=== PATIENT | female | born 1950 | race Hispanic/Latino ===

== ENCOUNTER 2020-09-04 14:03 | Emergency (ER) | payer OTHER ==
--- OUTSIDE RECORDS SUMMARY | 2020-09-04 14:05 | XMS REPORT ---
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
--- OUTSIDE RECORDS SUMMARY | 2020-09-04 14:05 | XMS REPORT ---
:1950 Author Organization [facility] Address [address] [facility] [place] [address] Care Team Providers Name Role Phone Pamela Unavailable [phone] PROBLEMS Type Condition ICD9-CM [id number] Onset Condition SNOMED Code Notes Code Code Dates Status Problem Vaginal N89.8 Active 31830522 itching Problem Prosthetic eye Z97.0 Active 264798741 Located on globe right. Problem Itching of ear L29.9 Active 377815126 Problem Hematuria, R31.9 Active 63101402 unspecified type Problem Bilateral back M54.9 Active 092521948 Located pain, bilaterally unspecified at back location, mid-level . unspecified chronicity Problem Abnormal R92.8 Active 095504431 mammogram of left breast Problem Elevated BP R03.0 Active 927746222 without diagnosis of hypertension Problem Abnormal R92.8 Active 181700955 mammogram Problem Urinary R32 Active 486784991 incontinence, unspecified type Problem Essential I10 Active 26603561 hypertension Problem Hyperglycemia R73.9 Active 37020418 Problem Counseling and Z71.89 Active 032145796 coordination of care Problem Mass of left N63.20 Active 96354680771369727 N oted on breast mammogram. ALLERGIES No Known Allergies ENCOUNTERS from 1950 to 2020-09-03 Encounter Location Date Provider [facility] [address] [facility] [place] Aug, Melvi Pamela Salcido bnormal mammogram Family [facility] [address], [place] [address] R92.8 and Abno rmal ultrasound of breast R92.8 IMMUNIZATIONS No Information SOCIAL HISTORY Tobacco Use: Social History Observation Description Date Details (start date - stop date) Never Smoker Sex Assigned At : Social History Observation Description Sex Assigned At Unknown Alcohol Screen Question Answer Notes Did you have a drink containing alcohol in the past year? No Points 0 Interpretation Negative Tobacco Use/Smoking Question Answer Notes Are you a never smoker REASON FOR REFERRAL No Information VITAL SIGNS No information MEDICATIONS Medication SIG (Take, Route, Frequency, Start Date End Date Status Duration) Enalapril Maleate 5 MG 1-2 tablets Orally Once a day for Active high blood pressure for 90 days PROCEDURES No Information RESULTS No Results REASON FOR VISIT referral to general surgery MEDICAL (GENERAL) HISTORY Type Description Date Medical History Prosthetic eye globe Medical History Urinary incontinence, unspecified type Medical History Elevated BP without diagnosis of hyperte nsion Medical History Bilateral back pain, unspecified back lo cation, unspecified chronicity Medical History Hyperglycemia Surgical History Hysterectomy 1986 Surgical History Glaucoma 1989 Surgical History Gallbladder Removal 1999 Surgical History Eye Removal 2011 Goals Section No Information Health Concerns No Information MEDICAL EQUIPMENT No Information MENTAL STATUS No Information FUNCTIONAL STATUS No Information ASSESSMENTS Encounter Date Diagnosis Notes Aug, Abnormal mammogram of left breast (ICD-1 0 - R92.8) Aug, Abnormal ultrasound of breast (ICD-10 - R92.8) PLAN OF TREATMENT Medication Medication Name Sig Start Date Stop Date Enalapril Maleate 5 MG 1-2 tablets Orally Once a day for high blood pressure for 90 days Next Appt Details Provider Name:Melviliv Santiago, 11-0 5 11:00:00 AM, [address], [address], [place], [address], Provider Name:Melvi Santiago 2020-09-1 2 09:40:00 AM, [address], [address], [place], [address], Insurance Providers Payer Name Payer Address Payer Insured Patient Coverage Cover age Phone Name Relationship to Start Date End Date Insured MEDICARE Attn Part B [id number] Blaze Huerta [facility] Claims [phone] [facility] [address] [employer] [address] [phone] Blaze Huerta [facility] [address] a A Medicare [id number] Replace
--- OUTSIDE RECORDS SUMMARY | 2020-09-04 14:05 | XMS REPORT ---
:1950 Author Organization eClinicalWorks Care Team Providers Name Role Phone Melvi Santiago Provider Role Unavailable Allergies, Adverse Reactions, Alerts Substance Reaction Event Type N.K.D.A. 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 Problem Bilateral back pain, unspecified M54.9 Active back location, unspecified chronicity Problem Essential hypertension I10 Activ e Problem Hyperglycemia R73.9 Active Problem Itching of ear L29.9 Active Problem Elevated BP without diagnosis of R03.0 Active hypertension Problem Hematuria, unspecified type R31.9 Active Problem Vaginal itching N89.8 Active Assessment Medicare annual wellness visit, Z00.00 Active subsequent Assessment Skin lesions L98.9 Active Assessment Asymptomatic menopausal state Z78.0 Active Assessment Rash and nonspecific skin eruption R21 Active Assessment Encounter for screening mammogram Z12.31 Active for malignant neoplasm of breast Assessment Itching L29.9 Active Medications Medication Code Code Instructions Start End Status Dosage System Date Date Enalapril [facility] 06136412991 5 MG Orally Active 1 tabl et Maleate Once a day for high blood pressure Ketoconazole ND 09549228495 2 % Externally June 01Jul Active 1 application Once a day 2019 12, to affected 2020 areas Results No Known Results Summary Purpose eClinicalWorks Submission
--- OUTSIDE RECORDS SUMMARY | 2020-09-04 14:05 | XMS REPORT | Continuity of Care Document ---
:1950 Author Organization [facility] Address [address] [place] [address] Care Team Providers Name Role Phone Unavailable Unavailable Unavailable Problems This patient has no known problems. Allergies, Adverse Reactions, Alerts This patient has no known allergies or adverse reactions. Medications Ordered Filled Start Stop Current Ordering Indication Dosage Frequency Signature Comments Components Source Medication Medication Date Date Medication? Clinician (SIG) Name Name Enalapril Enalapril Yes Melvi 1-[address] Maleate Maleate 2-05 Millender tablets L ukes - 00:[facility]: [facility] Procedures This patient has no known procedures. Encounters Start End Encounter Admission Attending Care Care Encounter Source Date/Time Date/Time Type Type Clinicians Facility Department ID 2020-09-03 2020-09-03 Outpatient [facility] [id number] [facility] 2020-08-16 2020-08-16 Outpatient [facility] [id number] [facility] 2020-08-05 2020-08-05 [facility] [id number] [facility] 11:00[facility]00 11:00:00 [facility] Medicine Outpati ent Clinics 2020-06-01 2020-06-01 [facility] [id number] 13:20:00 13:20:00 [facility] Medicine l Medicine Outpati ent Clinics 2020-05-20 2020-05-20 [facility] [id number] 11:50:00 11:50:00 [facility] Medicine Outpati ent Clinics 2020-05-07 2020-05-07 [facility] [id number] 08:04:00 08:04:00 [facility] Medicine Outpati ent Clinics 2020-04-19 2020-04-19 [facility] [id number] [facility] 23:41:00 23:41:00 [facility] Medicine Outpati ent Clinics 2020-04-16 2020-04-16 [facility] [id number] 15[facility]00:00 15:00:00 [facility] Medicine Outpati ent Clinics 2019-12-24 2019-12-24 [facility] [id number] 22:31:00 22:31:00 [facility] Medicine Outpati ent Clinics 2019-12-24 2019-12-24 [facility] [id number] [facility] 09[facility]30:00 09:30:00 [facility] Medicine Outpati ent Clinics 2019-09-15 2019-09-15 [facility] [id number] [address] 10:00:00 10:00:00 [facility] Medicine Outpati ent Clinics 2019-08-25 2019-08-25 Outpatient brucezzAmy Suresh [id number] [facility] 15:25:[facility] 15:25:00 Abraham Rosario [facility] l Outpati [facility] Clinics 2019-08-20 2019-08-20 [facility] [id number] [address] 22:36:00 22:36:00 [facility] Medicine Outpati [facility] Clinics 2019-08-20 2019-08-20 [facility] [id number] 14:00:00 14:00:00 [facility] Medicine Outpati ent Clinics Results This patient has no known results.
--- OUTSIDE RECORDS SUMMARY | 2020-09-04 14:05 | XMS REPORT ---
:1950 Author Organization [facility] Address [address] [facility], [address] [place] [address] Care Team Providers Name Role Phone Millender Unavailable [phone] PROBLEMS Type Condition ICD9-CM [id number] Onset Condition SNOMED Code Notes Code Code Dates Status Problem Elevated BP R03.0 Active 015636378 without diagnosis of hypertension Problem Itching of ear L29.9 Active 281805564 Problem Hematuria, R31.9 Active 91371469 unspecified type Problem Prosthetic eye Z97.0 Active 127121639 Located on globe right. Problem Mass of left N63.20 Active 62591212189210590 N oted on breast mammogram. Problem Urinary R32 Active 687286518 incontinence, unspecified type Problem Abnormal R92.8 Active 372615666 mammogram of left breast Problem Vaginal N89.8 Active 15545438 itching Problem Bilateral back M54.9 Active 077580657 Located pain, bilaterally unspecified at back location, mid-level . unspecified chronicity Problem Essential I10 Active 41660924 hypertension Problem Hyperglycemia R73.9 Active 26530099 Problem Counseling and Z71.89 Active 832025544 coordination of care ALLERGIES No Known Allergies ENCOUNTERS from 1950 to 2020-09-01 Encounter Location Date [facility] [address] [facility] [address] Jul, 2020 Melvi [place] [address] IMMUNIZATIONS No Information SOCIAL HISTORY Tobacco Use: [...] Information RESULTS No Results REASON FOR VISIT No Information MEDICAL (GENERAL) HISTORY Type Description Date Medical [...] No Information FUNCTIONAL STATUS No Information ASSESSMENTS No Information PLAN OF TREATMENT Medication Medication Name Sig Start Date Stop Date Enalapril Maleate 5 MG 1-2 tablets Orally Once a day for high blood pressure for 90 days Next Appt Details Provider Name:Melvi Santiago, 2019-11-1 2 09:40:00 AM, [address] [facility], [address], [place], [address], Insurance Providers Payer Name Payer Address Payer Insured Patient Coverage Cover age Phone Name Relationship to Start Date End Date Insured [place] [address] [phone] Blaze Huerta [facility] [address] a A Medicare [id number] Replace MEDICARE Attn Part B [id number] Blaze Huerta [facility] Claims [phone] [facility] [address]
--- OUTSIDE RECORDS SUMMARY | 2020-09-04 14:05 | XMS REPORT ---
:1950 Author Organization eClinicalWorks Care Team Providers Name Role Phone Melvi Santiago Provider Role Unavailable Allergies, Adverse Reactions, Alerts Substance Reaction Event Type N.K.D.A. Info Not Available Non Drug Allergy Problems Problem Type Condition Code Onset Dates Condition Statu s Problem Urinary incontinence, unspecified R32 Active type Problem Itching of ear L29.9 Active Problem Elevated BP without diagnosis of R03.0 Active hypertension Problem Mass of left breast N63.20 Active Problem Counseling and coordination of care Z71.89 Active Problem Abnormal mammogram of left breast R92.8 Active Problem Bilateral back pain, unspecified M54.9 Active back location, unspecified chronicity Problem Hematuria, unspecified type R31.9 Active Problem Hyperglycemia R73.9 Active Problem Essential hypertension I10 Activ e Assessment Counseling and coordination of care Z71.89 Active Assessment Mass of left breast N63.20 Active Assessment Essential hypertension I10 Activ e Problem 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
[2020-09-04 14:44] LABS: Absolute Lymphocytes (CBC) 2.2 K/uL (0.7-4.9); Basophils % 0.7 % (0-1.3); Hematocrit 42.3 % (36.0-45.0); Lymphocytes % 24.3 % (15.3-44.8); MPV 9.2 fL (7.6-11.3); RBC Red Blood Cell Count 5.05 M/uL (3.86-4.86)
[2020-09-04] MEDS ORDERED: MORPHINE 4 MG/ML SYR ONE (14:54)
[2020-09-04] MEDS ORDERED: ONDANSETRON 4 MG/2 ML VIAL ONE (14:54)
[2020-09-04 15:03] LABS: Albumin 4.2 g/dL (3.4-5.0); Bilirubin Direct 0.2 mg/dL (0-0.2); Bilirubin Total 0.8 mg/dL (0.2-1.0); Potassium 3.6 mmol/L (3.5-5.1)
--- NOTE | 2020-09-04 15:38 | RAD REPORT ---
EXAM DESCRIPTION: CT - Abdomen Pelvis W Contrast - 09/04/2020 3:23 pm CLINICAL HISTORY: ABD PAIN COMPARISON: 3D SCR SONJA BILAT W/CAD dated 06/29/2020; Follow Up Breast Axilla Comp dated 08/12/2020 TECHNIQUE: Biphasic, helical CT imaging of the abdomen and pelvis was performed following 100 ml non -ionic IV contrast. No oral contrast. All CT scans are performed using dose optimization technique as appropriate and may include automated exposure control or mA/KV adjustment according to patient size. FINDINGS: No suspicious findings in the lung bases. No pericardial effusion. Liver shows a mild diffuse fatty infiltration pattern. There are several round low-density masses in the left lobe and anterior right lobe. The show fluid attenuation and are most likely incidental cyst s. No enhancing or solid mass lesion of the liver confirmed. No portal vein abnormality identified. G allbladder is absent. Biliary tree within normal limits for a post cholecystectomy patient. Pancreas and spleen show no suspicious findings. Symmetric renal function is seen with no hydronephrosis or suspicious renal mass. No pyelonephritis o r acute parenchymal process. No bladder abnormalities. No adrenal abnormalities. Uterus is absent. Atrophic ovaries show no suspicious findings. No gastric wall thickening or mass. No small bowel abnormality. The appendix is normal. No acute colo n finding identifiable. Patient has moderate severity sigmoid diverticulosis without acute diverticul itis. Minimal stranding is seen near the vaginal cuff not suspected to be acute. Patient detailed mi n in the right upper quadrant. No free air, free fluid or pneumatosis. No peritoneal or retroperitoneal mass or bulky lymphadenopat hy. Disc and bone degenerative changes are present. No acute or pathologic bone process seen. In the lateral lower quadrant of the left breast a 12 millimeter irregular mass density is present. M ammography and sonography from June and July of this year showed findings suspicious for left breast malignancy. It is unknown if the patient is aware of this finding or if recommended ultrasound core biopsy has been scheduled. IMPRESSION: Gallbladder is absent. Biliary tree is prominent but not outside of normal range for a p ost cholecystectomy patient. Duct stones can be occult. Correlation is needed with any biliary obstru ctive symptoms. Mild diffuse fatty infiltration of the liver. Multiple small liver cysts are identified. Prominent sigmoid diverticulosis without diverticulitis or acute GI finding. A left breast 12 millimeter mass is identified, shown on recent mammography and sonography to be a pr obable malignancy. It is unknown if the patient is aware of this finding or if the recommended ultras ound guided core biopsy has been scheduled.
[2020-09-04 15:56] LABS: Urine Blood 1+ (NEG); Urine Glucose NEGATIVE (NEG); Urine Protein NEGATIVE (NEG); Urine pH 5.5 (5.0-7.0)
--- NOTE | 2020-09-04 16:04 | EDPHYS ---
Physician Documentation [facility] Name: Juanita Augustine Age: 69 yrs Sex: Female : 1950 Arrival Date: 09/04/2020 Time: 14:05 Bed 6 Private MD: Melvi Santiago ED Physician Ad Mackay HPI: 09/04 14:56 This 69 yrs old Female presents to ER via Ambulatory with complaints of pm1 Abdominal Pain. 14:56 The patient presents with abdominal pain in the epigastric area. Onset: The pm1 symptoms/episode began/occurred 3 day(s) ago. The symptoms do not radiate. Associated signs and symptoms: Pertinent positives: loose stools, Pertinent negatives: nausea, vomiting, and diarrhea, blood in stools, chest pain, dysuria, fever, shortness of breath. The symptoms are described as achy. Modifying factors: The symptoms are alleviated by nothing, the symptoms are aggravated by nothing. Severity of pain: in the emergency department the pain is unchanged. The patient has been recently seen by a physician: with different complaint(s), 3 weeks ago was seen for right knee pain. Historical: - Allergies: 14:32 No Known Allergies; iw - Home Meds: 14:32 enalapril maleate 5 mg Oral tab 1 tab once daily [Active]; iw - PMHx: 14:32 Hypertension; iw - PSHx: 14:32 Cholecystectomy; Hysterectomy; right eye; iw 14:30 L wrist; aa5 ROS: 14:58 Constitutional: Negative for fever, chills, and weight loss. pm1 14:58 Back: Negative for injury and pain. 14:58 Cardiovascular: Negative for chest pain, palpitations, and edema, Respiratory: Negative for shortness of breath, cough, wheezing, and pleuritic chest pain, Skin: Negative for injury, rash, and discoloration, Neuro: Negative for headache, weakness, numbness, tingling, and seizure. 14:58 Abdomen/GI: Positive for abdominal pain, of the epigastric area, Negative for nausea, vomiting, and diarrhea. 14:58 MS/extremity: Positive for pain, of the right knee, Negative for decreased range of motion, deformity. Exam: 14:58 Constitutional: This is a well developed, well nourished patient who is awake, alert, pm1 and in no acute distress. Head/Face: Normocephalic, atraumatic. 14:58 Back: No spinal tenderness. No costovertebral tenderness. Full range of motion. Skin: Warm, dry with normal turgor. Normal color with no rashes, no lesions, and no evidence of cellulitis. MS/ Extremity: Pulses equal, no cyanosis. Neurovascular intact. Full, normal range of motion. 14:58 Cardiovascular: Exam negative for acute changes, Rate: normal, Rhythm: regular, Pulses: no pulse deficits are appreciated. 14:58 Respiratory: Exam negative for acute changes, respiratory distress, shortness of breath. 14:58 Abdomen/GI: Exam negative for acute changes, Inspection: abdomen appears normal, Palpation: abdomen is soft and non-tender, in all quadrants. 14:58 Neuro: Exam negative for acute changes, Orientation: is normal, Mentation: is normal, Motor: is normal, moves all fours. Vital Signs: 14:23 BP 150 / 100; Pulse 111; Resp 16 S; Temp 97.8; Pulse Ox 98% on R/A; iw 14:53 BP 147 / 95; Pulse 74; Resp 16 S; Pulse Ox 97% on R/A; aa5 15:35 BP 137 / 71; Pulse 83; Resp 16 S; Pulse Ox 97% on R/A; aa5 MDM: 14:16 Patient medically screened. pm1 14:53 Data reviewed: vital signs. Data interpreted: Pulse oximetry: on room air is 97 %. pm1 Interpretation: normal. 16:02 Counseling: I had a detailed discussion with the patient and/or guardian regarding: the pm1 historical points, exam findings, and any diagnostic results supporting the discharge/admit diagnosis, lab results, radiology results, the need for outpatient follow up, oncology and GI, to return to the emergency department if symptoms worsen or persist or if there are any questions or concerns that arise at home. 16:19 ED course: Patient is aware of breast mass. She had abnormal U/S and is seeing her PCP pm1 on Sunday to discuss biopsy plans. 09/04 14:20 Order name: Basic Metabolic Panel; Complete Time: 15:04 pm1 09/04 14:20 Order name: CBC with Diff; Complete Time: 14:56 pm1 09/04 14:20 Order name: Hepatic Function; Complete Time: 15:04 pm1 09/04 14:20 Order name: Lipase; Complete Time: 15:04 pm1 09/04 14:20 Order name: CT Abd/Pelvis - IV Contrast Only; Complete Time: 15:58 pm1 09/04 14:37 Order name: Urine Dipstick--Ancillary (enter results); Complete Time: 15:58 eb 09/04 14:20 Order name: IV Saline Lock; Complete Time: 14:38 pm1 09/04 14:20 Order name: Labs collected and sent; Complete Time: 14:39 pm1 09/04 14:20 Order name: Urine Dipstick-Ancillary (obtain specimen); Complete Time: 14:37 pm1 Administered Medications: 14:45 Drug: morphine 4 mg Route: IVP; Site: right antecubital; aa5 14:45 Drug: Zofran (Ondansetron) 4 mg Route: IVP; Site: right antecubital; aa5 Disposition: 16:38 Co-signature as Attending Physician, Ad Mackay MD. rn Disposition: 09/04/20 16:04 Discharged to Home. Impression: Unspecified abdominal pain. - Condition is Stable. - Discharge Instructions: Abdominal Pain, Adult, Breast Biopsy. - Prescriptions for Pepcid 20 mg Oral Tablet - take 1 tablet by ORAL route every 12 hours for 10 days; 20 tablet. Tramadol 50 mg Oral Tablet - take 1 tablet by ORAL route every 8 hours as needed; 12 tablet. - Medication Reconciliation Form, Thank You Letter, Antibiotic Education, Prescription Opioid Use form. - Follow up: Emergency Department; When: As needed; Reason: Worsening of condition. Follow up: Private Physician; When: 2 - 3 days; Reason: Recheck today's complaints, Continuance of care, Re-evaluation by your physician. - Problem is new. - Symptoms have improved. Signatures: Dispatcher [employer] EDMS Sita Matthews RN RN iw Nieto, Roman, MD MD rn Calderon, Audri, RN RN aa5 Dinh Caruso, [employer]DR[employer] INSIDE CHANNEL ACCOUNT MANAGER pm1 Corrections: (The following items were deleted from the chart) 16:38 16:04 09/04/2020 16:04 Discharged to Home. Impression: Unspecified abdominal pain. aa5 Condition is Stable. Forms are Medication Reconciliation Form, Thank You Letter, Antibiotic Education, Prescription Opioid Use. Follow up: Emergency Department; When: As needed; Reason: Worsening of condition. Follow up: Private Physician; When: 2 - 3 days; Reason: Recheck today's complaints, Continuance of care, Re-evaluation by your physician. Problem is new. Symptoms have improved. pm1
--- NOTE | 2020-09-04 16:04 | ER ---
Nurse's Notes [facility] Name: Juanita Augustine Age: 69 yrs Sex: Female : 1950 Arrival Date: 09/04/2020 Time: 14:05 Bed 6 Private MD: Melvi Santiago Diagnosis: Unspecified abdominal pain Presentation: 09/04 14:23 Chief complaint: Patient states: right knee pain X 2 weeks, was taking some medicine at home for the pain and now has RUQ pain X 4 days. Coronavirus screen: At this time, the client does not indicate any symptoms associated with coronavirus-19. Ebola Screen: Patient negative for fever greater than or equal to 101.5 degrees Fahrenheit, and additional compatible Ebola Virus Disease symptoms Patient denies exposure to infectious person. Patient denies travel to an Ebola-affected area in the 21 days before illness onset. No symptoms or risks identified at this time. Initial Sepsis Screen: Does the patient meet any 2 criteria? No. Patient's initial sepsis screen is negative. Does the patient have a suspected source of infection? No. Patient's initial sepsis screen is negative. Risk Assessment: Do you want to hurt yourself or someone else? Patient reports no desire to harm self or others. Onset of symptoms was August 31, 2020. 14:23 Method Of Arrival: Ambulatory 14:23 Acuity: LIBAN 3 iw Historical: - Allergies: 14:32 No Known Allergies; iw - Home Meds: 14:32 enalapril maleate 5 mg Oral tab 1 tab once daily [Active]; iw - PMHx: 14:32 Hypertension; iw - PSHx: 14:32 Cholecystectomy; Hysterectomy; right eye; iw 14:30 L wrist; aa5 Screenin:20 Abuse screen: Denies threats or abuse. Nutritional screening: No deficits noted. aa5 Tuberculosis screening: No symptoms or risk factors identified. Fall Risk None identified. Assessment: 14:20 General: Appears uncomfortable, Behavior is calm, cooperative. Pain: Complains of pain aa5 in right upper quadrant and right knee Pain does not radiate. Pain currently is 8 out of 10 on a pain scale. Quality of pain is described as aching, Pain began Pt reports RUQ pain x 4 days and reports right knee pain x 3-4 weeks but has gotten worse over the last 2 weeks. Is continuous. Neuro: Level of Consciousness is awake, alert, obeys commands, Oriented to person, place, time, situation. Cardiovascular: Heart tones S1 S2 present Rhythm is regular. Respiratory: Airway is patent Respiratory effort is even, unlabored, Respiratory pattern is regular, symmetrical. GI: Abdomen is round non-distended, Bowel sounds present X 4 quads. Abd is soft and non tender X 4 quads. Reports diarrhea on and off Patient currently denies nausea, vomiting. : No signs and/or symptoms were reported regarding the genitourinary system. EENT: No signs and/or symptoms were reported regarding the EENT system. Derm: Skin is pink, warm \T\ dry. Musculoskeletal: Range of motion: intact in all extremities. 14:20 Reassessment: Pt reports she had a recent abnormal mammogram and has biopsy scheduled. .aa5 14:53 Reassessment: Patient is alert, oriented x 3, equal unlabored respirations, skin aa5 warm/dry/pink. Awaiting CT scan, pt notified of wait time . 15:30 Reassessment: Patient is alert, oriented x 3, equal unlabored respirations, skin aa5 warm/dry/pink. Patient states feeling better. Pt back from CT scan, pt notified of wait time for results. . Pain: Pain currently is 4 out of 10 on a pain scale. Vital Signs: 14:23 BP 150 / 100; Pulse 111; Resp 16 S; Temp 97.8; Pulse Ox 98% on R/A; iw 14:53 BP 147 / 95; Pulse 74; Resp 16 S; Pulse Ox 97% on R/A; aa5 15:35 BP 137 / 71; Pulse 83; Resp 16 S; Pulse Ox 97% on R/A; aa5 ED Course: 14:05 Patient arrived in ED. as 14:05 Melvi Santiago MD is Private Physician. as 14:16 Dinh Caruso NP is PHCP. pm1 14:16 Ad Mackay MD is Attending Physician. pm1 14:23 Jesse Estrada, KRISTI is Primary Nurse. bp 14:24 Triage completed. iw 14:32 Arm band placed on. iw 14:37 Patient has correct armband on for positive identification. Placed in gown. Bed in low mh5 position. Call light in reach. Side rails up X 1. Warm blanket given. Pulse ox on. NIBP on. 14:38 Urine collected: clean catch specimen, clear. [facility] 14:40 Initial lab(s) drawn, by me, sent to lab. Inserted saline lock: 22 gauge in right aa5 antecubital area, using aseptic technique. Blood collected. 15:23 CT Abd/Pelvis - IV Contrast Only In Process Unspecified. EDMS Administered Medications: 14:45 Drug: morphine 4 mg Route: IVP; Site: right antecubital; 5 14:45 Drug: Zofran (Ondansetron) 4 mg Route: IVP; Site: right antecubital; 5 Outcome: 16:04 Discharge ordered by . pm1 16:38 Patient left the ED. [facility] Signatures: Dispatcher [employer] EDMS Chaparrita Mora Irene, KRISTI BERRY Jaylyn Loco RN RN [facility] Dinh Caruso, MILDRED PRODUCT COORDINATOR [facility] Noy Mora [facility] Jesse Estrada RN RN bp
[2020-09-04 16:54] VITALS: TEMP 97.8
[2020-09-04 16:55] VITALS: O2SAT 97
[2020-09-04 16:57] VITALS: BP 137/71
== END 2020-09-04 16:38 | disposition home or self-care (01) ==
LOC: ER 14:03
DX: R10.9 Unspecified abdominal pain (principal); I10 Essential (primary) hypertension
CPT/HCPCS: 85025; 80048; 36415; 80076; 81003; 83690; 74177; 96375; 96374; 99284; Q9967; J2405

== ENCOUNTER → 2020-09-21 | Day surgery (SDC) | payer OTHER ==
--- OUTSIDE RECORDS SUMMARY | 2020-09-21 09:52 | XMS REPORT ---
[...] End Status Dosage System Date Date Enalapril [facility] [id number] 5 MG Orally Once Active 1 -2 Maleate a day for high tablets blood pressure Results No Known Results Summary Purpose eClinicalWorks Submission
--- OUTSIDE RECORDS SUMMARY | 2020-09-21 09:52 | XMS REPORT ---
:1950 Author Organization [facility] Address 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 Problem Itching of ear L29.9 Active 131139363 Problem Hematuria, R31.9 Active 87946514 unspecified type Problem Bilateral back M54.9 Active 412932098 Located pain, bilaterally unspecified at back location, mid-level . unspecified chronicity Problem Abnormal R92.8 Active 834777564 mammogram of left breast Problem Elevated BP R03.0 Active 459576722 without diagnosis of hypertension Problem Abnormal R92.8 Active 242976216 mammogram Problem Urinary R32 Active 152095130 incontinence, unspecified type Problem Essential I10 Active 52814516 hypertension Problem Hyperglycemia R73.9 Active 20345702 Problem Counseling and Z71.89 Active 571507799 coordination of care Problem Mass of left N63.20 Active 86783596496958597 N oted on breast mammogram. ALLERGIES No Known Allergies ENCOUNTERS from 1950 to 2020-09-03 Encounter Location Date [facility] [address] [facility] [address] Aug, Melvi Pamela Salcido bnormal mammogram Family Medicine [address], [place] [address] R92.8 and Abno rmal ultrasound of breast [...] 11:00:00 AM, [address], [address], [place], [address], Provider Name:Melvi Santiago 2020-09-1 2 09:40:00 AM, [address], [address], [place], [address], Insurance Providers Payer Name Payer Address Payer Insured Patient Coverage Cover age Phone Name Relationship to Start Date End Date Insured MEDICARE Attn Part B [id number] Blaze Huerta [facility] Claims [phone] [facility] [address] [employer] [address] [phone] Blaze Huerta [facility] [address] a A Medicare [id number] Replace
--- OUTSIDE RECORDS SUMMARY | 2020-09-21 09:52 | XMS REPORT ---
:1950 Author Organization [facility] Address [address] 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 Problem Mass of left N63.20 Active 23687893798573612 N oted on breast mammogram. Problem Urinary R32 Active 047808016 incontinence, unspecified type Problem Abnormal R92.8 Active 171190143 mammogram of left breast Problem Vaginal N89.8 Active 66059498 itching Problem Bilateral back M54.9 Active 284412205 Located pain, bilaterally unspecified at back location, mid-level . unspecified chronicity Problem Essential I10 Active 27611762 hypertension Problem Hyperglycemia R73.9 Active 58695962 Problem Counseling and Z71.89 Active 235181681 coordination of care ALLERGIES No Known Allergies ENCOUNTERS from 1950 to 2020-09-01 Encounter Location Date [facility] [address] [facility] [address] Jul, 2020 Melvi [place] [address] IMMUNIZATIONS No Information SOCIAL HISTORY Tobacco Use: [...] Name:Melvi Santiago, 2019-11-1 2 09:40:00 AM, [address] [facility], [place], [address], Insurance Providers Payer Name Payer Address Payer Insured Patient Coverage Cover age Phone Name Relationship to Start Date End Date Insured [employer] [address] [phone] Blaze Huerta [facility] [address] a A Medicare [id number] Replace MEDICARE Attn Part B [id number] Blaze Huerta [facility] Claims [phone] a A [address] [facility] [phone]
--- OUTSIDE RECORDS SUMMARY | 2020-09-21 09:52 | XMS REPORT | Continuity of Care Document ---
:1950 Author Organization [facility] t Address [address] [place] [address] Care Team Providers Name Role Phone Unavailable [...] Clinicians Facility Department ID 2020-09-03 2020-09-03 Outpatient [facility] [id number] [facility] 2020-08-16 2020-08-16 Outpatient [facility] [id number] [facility] 2020-08-09 2020-08-09 Outpatient [facility] [id number] [facility] 2020-08-05 2020-08-05 [facility] [id number] [facility] 11:00:00 11:00:00 [facility] Medicine Outpati ent Clinics 2020-06-01 2020-06-01 [facility] [id number] 13:20:00 13:20:00 t [facility] Medicine Outpati ent Clinics 2020-05-20 2020-05-20 [facility] [id number] 11:50:00 11:50:00 [facility] Medicine Outpati ent Clinics 2020-05-07 2020-05-07 [facility] [id number] 08:04:00 08:04:00 t [facility] Medicine Outpati ent Clinics 2020-04-19 2020-04-19 [facility] [id number] 23:41:00 23:41:00 [facility] Medicine Outpati ent Clinics 2020-04-16 2020-04-16 [facility] [id number] 15:00:00 15:00:00 [facility] Medicine Outpati ent Clinics 2019-12-24 2019-12-24 [facility] [id number] 22:31:00 22:31:00 [facility] Medicine Outpati ent Clinics 2019-12-24 2019-12-24 [facility] [id number] 09:30:00 09:30:00 [facility] Medicine Outpati ent Clinics 2019-09-15 2019-09-15 [facility] [id number] 10:00:00 10:00:00 [facility] Medicine Outpati ent Clinics 2019-08-25 2019-08-25 Outpatient Suresh Prince [id number] [facility] 15:25:00 15:25:00 Abraham Rosario [facility] l Outpati ent Clinics 2019-08-20 2019-08-20 [facility] [id number] 22:36:00 22:36:00 [facility] 2019-08-20 2019-08-20 Outpatient Trinidadyanira Tom [id number] 14:00:00 14:00:00 [facility] ent Clinics Results This patient has no known results.
--- OUTSIDE RECORDS SUMMARY | 2020-09-21 09:53 | XMS REPORT ---
:1950 Author Organization [facility] Address [address] 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 Problem Itching of ear L29.9 Active 170298564 Problem Hematuria, R31.9 Active 79474875 unspecified type Problem Bilateral back M54.9 Active 183809622 Located pain, bilaterally unspecified at back location, mid-level . unspecified chronicity Problem Abnormal R92.8 Active 247869615 mammogram of left breast Problem Elevated BP R03.0 Active 593167299 without diagnosis of hypertension Problem Abnormal R92.8 Active 130357063 mammogram Problem Urinary R32 Active 596142360 incontinence, unspecified type Problem Essential I10 Active 65341662 hypertension Problem Hyperglycemia R73.9 Active 10370105 Problem Counseling and Z71.89 Active 766211310 coordination of care Problem Mass of left N63.20 Active 38846545629012871 N oted on breast mammogram. ALLERGIES No Known Allergies ENCOUNTERS from 1950 to 2020-09-08 Encounter Location Date [facility] [address] Jul, Melvi [place] [address] IMMUNIZATIONS No Information SOCIAL HISTORY Tobacco Use: [...] days Next Appt Details Provider Name:Melvi Santiago, 2020-09-0 5 11:00:00 AM, [address], [address], [place], [address], Provider Name:Melvi Santiago 2020-09- 2 09:40:00 AM, [address], [address], [place], [address], Insurance Providers Payer Name Payer Address Payer Insured Patient Coverage Cover age Phone Name Relationship to Start Date End Date Insured MEDICARE Attn Part B [id number] Blaze Huerta [facility] Claims [address] [facility] [address] [employer] [address] [phone] Blaze Huerta [facility] 888 a A Medicare [id number] Replace
--- NOTE | 2020-09-21 13:11 | RAD REPORT ---
EXAM DESCRIPTION: US - Breast Core BX w/US Guidance - 09/21/2020 10:29 am CLINICAL HISTORY: ICD C50.919 COMPARISON: July 2020 ultrasound TECHNIQUE: The risks, benefits alternatives to the procedure were explained to the patient and infor med consent obtained. Skin, subcutaneous and breast tissues anesthetized with lidocaine. Under sonographic guidance, three 14 gauge vacuum assisted core biopsies of the mass within the outer left breast obtained. 2 centimeter specimens taken. Materials given to pathology. Subsequently a localizing clip was placed into the mass. Patient experienced no immediate complication IMPRESSION: Vacuum assisted core biopsies of the left breast mass
== END | disposition home or self-care (01) ==
LOC: FNA 09:42
PROVIDERS: ATTEND Surgery
DX: C50.912 Malignant neoplasm of unspecified site of left female breast (principal); Z17.0 Estrogen receptor positive status [ER+]
CPT/HCPCS: 19083; 88305

== ENCOUNTER 2020-10-20 07:19 | Day surgery (SDC) | payer OTHER ==
[2020-10-12 11:54] LABS: Absolute Lymphocytes (CBC) 1.9 K/uL (0.7-4.9); Basophils % 0.8 % (0-1.3); Hematocrit 38.9 % (36.0-45.0); Lymphocytes % 30.8 % (15.3-44.8); MPV 9.3 fL (7.6-11.3); RBC Red Blood Cell Count 4.69 M/uL (3.86-4.86)
[2020-10-12 12:08] LABS: ALT/SGPT 27 U/L (12-78); AST/SGOT 17 U/L (15-37); Albumin 3.8 g/dL (3.4-5.0); Alkaline Phosphatase 96 U/L (45-117); BUN Blood Urea Nitrogen 9 mg/dL (7-18); Bicarbonate 31 mmol/L (21-32); Bilirubin Total 0.8 mg/dL (0.2-1.0); Glucose Level 87 mg/dL (74-106); Potassium 3.8 mmol/L (3.5-5.1); Protein, Total 7.4 g/dL (6.4-8.2); Sodium Level 142 mmol/L (136-145)
--- NOTE | 2020-10-12 18:12 | EKG ---
Test Date: 2020-10-12 Test Time: 11:27:44 Tabulating Supervisor: MAJOR MEASUREMENT RESULTS: Intervals: Rate: 63 NH: 160 QRSD: 86 QT: 408 QTc: 417 [place]: P: 40 NH: 160 QRS: 71 T: 64 INTERPRETIVE STATEMENTS: Normal sinus rhythm Normal ECG No previous ECG available for comparison Electronically Signed On 10-12-20 18:11:14 RATING SPECIALIST by Guillermo Carrillo
--- OUTSIDE RECORDS SUMMARY | 2020-10-20 07:22 | XMS REPORT | Continuity of Care Document ---
:1950 Author Organization [facility] t Address [address] [place] [address] Care Team Providers Name Role Phone Unavailable [...] Date/Time Type Type Clinicians Facility Department ID 2020-09-20 2020-09-20 Outpatient [facility] [id number] [facility] 2020-09-03 2020-09-03 Outpatient [facility] [id number] [facility] 2020-08-16 2020-08-16 Outpatient [facility] [id number] [facility] 2020-08-09 2020-08-09 Outpatient [facility] [id number] [facility] 2020-08-05 2020-08-05 [facility] [id number] [facility] 11[facility]00:00 11:00:00 t [facility] Medicine l Medicine Outpati ent Clinics 2020-06-01 2020-06-01 [facility] [id number] [facility] 13:20:00 13:20:00 [facility] Medicine l Medicine Outpati ent Clinics 2020-05-20 2020-05-20 [facility] [id number] [facility] 11:50:00 11:50:00 [facility] Medicine l Medicine Outpati ent Clinics 2020-05-07 2020-05-07 [facility] [id number] 08:04:00 08:04:00 [facility] Medicine l Medicine Outpati ent Clinics 2020-04-19 2020-04-19 [facility] [id number] 23:41:00 23:41:00 [facility] Medicine l Medicine Outpati ent Clinics 2020-04-16 2020-04-16 [facility] [id number] 15:00:00 15:00:00 [facility] l Medicine Outpati ent Clinics 2019-12-24 2019-12-24 [facility] [id number] 22:31:00 22:31:00 [facility] Medicine l Medicine Outpati ent Clinics 2019-12-24 2019-12-24 [facility] [id number] 09:30:00 09:30:00 [facility] Medicine l Medicine Outpati ent Clinics 2019-09-15 2019-09-15 [facility] [id number] 10:00:00 10:00:00 [facility] Medicine l Medicine Outpati ent Clinics 2019-08-25 2019-08-25 Outpatient Suresh Prince [id number] [facility] 15:25:[facility] 15:25:00 Abraham Rosario [facility] l Outpati ent Clinics 2019-08-20 2019-08-20 Outpatient Anna Santos [id number] [facility] 22:36:00 22:36:00 [facility] ent Clinics 2019-08-20 2019-08-20 Outpatient Anna Santos [id number] [facility] 14:00:00 14:00:00 [facility] ent Clinics Results This patient has no known results.
--- OUTSIDE RECORDS SUMMARY | 2020-10-20 07:22 | XMS REPORT ---
[...] End Status Dosage System Date Date Enalapril [facility] [id number] 5 MG Orally Once Active 1 -2 Maleate a day for high tablets blood pressure Results No Known Results Summary Purpose eClinicalWorks Submission
[2020-10-20] MEDS ORDERED: Ringers Lactate 1,000 ML IV ONE (08:03)
[2020-10-20] MEDS ORDERED: CEFAZOLIN/SWI 1gm 1 GM/10 ML SYR ONE (08:03)
[2020-10-20] MEDS ORDERED: BUPIVACA 0.5%/EPI 0.0005%/PF 30 ML VIAL ONE (09:53)
[2020-10-20] MEDS ORDERED: METHYLENE BLUE 0.5% 10 ML AMP ONE (09:57)
[2020-10-20] MEDS ORDERED: propofoL 200 MG/20 ML VIAL IV ONE (10:13)
[2020-10-20] MEDS ORDERED: ROCURONIUM 50 MG/5 ML VIAL IV ONE (10:14)
[2020-10-20] MEDS ORDERED: dexAMETHasone 10 MG/ML VIAL ONE (10:14)
[2020-10-20] MEDS ORDERED: LIDOCAINE 2% MPF 5 ML VIAL ONE (10:14)
[2020-10-20] MEDS ORDERED: MIDAZOLAM HCL 2 MG/2 ML INJ ONE (10:14)
[2020-10-20] MEDS ORDERED: FENTANYL CITR 100 MCG/2 ML ONE (10:14)
[2020-10-20] MEDS ORDERED: ONDANSETRON 4 MG/2 ML VIAL ONE ×2 (10:15→13:05)
--- NOTE | 2020-10-20 11:24 | RAD REPORT ---
EXAM DESCRIPTION: US - Surgical Specimen - 10/20/2020 11:14 am CLINICAL HISTORY: SPECIMEN Surgical specimen from excisional lumpectomy COMPARISON: Breast Core BX w/US Guidance dated 09/21/2020; Follow Up Breast Axilla Comp dated 08/12/20 20 FINDINGS: Within the retrieved left breast surgical specimen 10 x 9 mm hypoechoic mass is present. T his correlates with the pre-operative left breast ultrasound appearance. Findings were discussed with Dr. Bender.
--- NOTE | 2020-10-20 11:40 | P.OP ---
Preoperative diagnosis: LEFT Breast Invasive Ductal Carcinoma Postoperative diagnosis: LEFT Breast Invasive Ductal Carcinoma Primary procedure: LEFT Breast Lumpectomy with [place] Lymph Node Biopsy Anesthesia: GETA + Local Estimated blood loss: <5cc Specimen: LEFT Breast Mass, LEFT [place] Lymph Node Findings: Blue LN, pathology confirmed touch margins negative, LN negative Complications: None Implants: Feducial Clips left in Axilla and on chest wall Transferred to: Recovery Room Condition: Good
[2020-10-20] MEDS ORDERED: KETOROLAC 30 MG/ML INJ ONE (11:54)
[2020-10-20] MEDS: HYDROMORPHONE HCL 1 MG/ML INJ ONE ×2 (12:17→12:22)
[2020-10-20] MEDS ORDERED: ONDANSETRON 4 MG/2 ML VIAL IV ONE (12:55)
--- NOTE | 2020-10-20 12:56 | OP ---
Date of Procedure: 10/20/2020 Surgeon: Suraj Bender MD, Preoperative Diagnosis: Left breast invasive ductal carcinoma. Postoperative Diagnosis: Left breast invasive ductal carcinoma. Procedure Performed: Left breast lumpectomy with sentinel lymph node biopsy. Anesthesia: General endotracheal plus local with 0.25% Marcaine with epinephrine. Estimated Blood Loss: Less than 5 mL. Specimens: 1.Left breast mass. 2.Left sentinel lymph node-axillary. Findings: 1.Mass from the left breast was taken out, x-ray to ensure entire specimen removed, which was confir med. I spoke with Dr. Marshall, who confirmed. 2.Pathology confirmed positivity of the mass on the breast and frozen section with touch preps I marco gabby say. 3.Lymph node was run through frozen section and found to blue consistent with a simple lymph node. Counts were confirmed using the lymphoscintigraphy and lymph node was preliminarily negative and froz en section will be sent for final path. Complications: None. Implants: Fiducial clips left in the left axillary and at the deep margin of the left breast mass on the chest wall attached to the prepectoral fascia. Medium clips were placed in these locations. Disposition: The patient transferred to recovery room in good condition. Procedure In Detail: After informed consent was obtained, the patient was brought to the operating r oom, prepped and draped in the usual sterile fashion. After adequate anesthesia was achieved, I inje cted the nipple-areolar complex with methylene blue in a periareolar fashion. The breast was then ma ssaged for approximately 5 minutes to allow for a lymphatic uptake and distribution to the sentinel l ymph node. The patient had lymphoscintigraphy injection earlier this day approximately 2 hours prior to surgical procedure. Counts were taken at this point. Please see chart for full details regardin g in-vivo and ex-vivo counts, skin and background. At this point, I palpated the left breast mass at approximately 4 o'clock position, left lower outer breast confirmed with palpation. I then made a c urvilinear incision just superior to the inframammary crease. I dissected down through subcutaneous fat and dissected down to the palpable mass. I circumferentially dissected this using a combination of blunt and electrocautery dissection, placing clips on any lymphatic channels there were encountere d which were medium clips. At this point, the mass was removed. Marking sutures were placed, short superior, long lateral and deep margin was inked. This was then sent for Faxitron analysis x-ray to see if there was a clip present, which was I believe the clip was placed. However, no clip was seen on imaging. However, I spoke with the radiologist, Dr. Marshall, who stated that the mass is visualized in the specimen with what appears to be a good rim of normal tissue and the mass was entirely removed as such I sent to the pathologist for touch prep to confirm positivity of the mass. At this point, I irrigated the breast cavity and placed fiducial markers on the deep margin which were clips of the medium type. This was attached to the prepectoral fascia. Several were placed at this point. Hemos tasis was easily achieved with electrocautery. The area was irrigated once again and the deep breast tissue was closed using interrupted 3-0 Vicryl sutures. Deep dermal flank also closed with 3-0 Vicr yl sutures and the skin was closed with 4-0 Monocryl in a running fashion and Dermabond was then plac ed over top. I then turned my attention to the axilla. I used the Neoprobe to identify the axillary lymph node. At this point, I then made a linear incision following the hairline in the left axilla, dissected down through subcutaneous tissues using electrocautery and using a combination of blunt di ssection, electrocautery. I ultimately visualized a lymph node using a combination of the Neoprobe u pdates until a blue lymph node was identified. This was grasped elevated and dissected free. Clips were placed on the lymphatic channel surrounding this on the efferent and afferent side and the lymph atics were then ligated using Metzenbaum scissors. The specimen was removed and sent off for patholo gic examination with frozen section to ensure this was the sentinel lymph node. Background check marco wed the less than 40 on the Neoprobe indicating background levels were quite low, much less than 10% of the hot lymph node which is well over thousands. At this point, I irrigated the area, waited for confirmation from the pathologist. Hemostasis was achieved with electrocautery. When pathologist co nfirmed that the sentinel lymph node was negative, I then closed the deep dermal layer with interrupt ed 3-0 Vicryl suture and the skin was closed with 4-0 Monocryl in a running fashion. Dermabond place d over top. The patient tolerated the procedure well without evidence of complication and transferre d to PACU in good condition. All counts were correct at the end of the case. TEZ/HAWK Voice ID: [id number] Report ID: [id number]
[2020-10-20 13:21] VITALS: BP 155/85; TEMP 97.1; O2SAT 95
[2020-10-20] MEDS ORDERED: HYDROCODONE/APAP 5/325 MG TAB PO ONE (13:35)
[2020-10-20] MEDS ORDERED: HYDROCODONE/APAP 5/325 MG TAB ONE (13:39)
== END 2020-10-20 14:20 | disposition home or self-care (01) ==
LOC: OR 07:19
PROVIDERS: ATTEND Surgery
PROC: 07B60ZX Excision of Left Axillary Lymphatic, Open Approach, Diagnostic (ICD-10-PCS; 2020-10-20)
PROC: 0HBU0ZZ Excision of Left Breast, Open Approach (ICD-10-PCS; principal; 2020-10-20 09:15)
DX: C50.512 Malignant neoplasm of lower-outer quadrant of left female breast (principal); Z17.0 Estrogen receptor positive status [ER+]; Z20.828 Contact with and (suspected) exposure to other viral communicable diseases; I10 Essential (primary) hypertension; K21.9 Gastro-esophageal reflux disease without esophagitis
CPT/HCPCS: 93005; 85025; 36415; 88329; 88307 ×2; 88333; 80053; 76098; 19301; 38525; 38900; J2704; J2250; J3010; J1100; J1170; J0690; J7120; J2405 ×3; 88305

== ENCOUNTER 2021-08-25 06:27 | Day surgery (SDC) | payer OTHER ==
[2021-08-24 11:59] LABS: Urine Appearance CLEAR (Clear); Urine Bilirubin NEGATIVE (Negative); Urine Blood TRACE (Negative); Urine Color YELLOW (Yellow); Urine Glucose NEGATIVE (Negative); Urine Protein NEGATIVE (Negative); Urine Specific Gravity 1.015 (1.005-1.030); Urine Urobilinogen 0.2 mg/dL (0.2-1.0)
[2021-08-24 12:01] LABS: Absolute Lymphocytes (CBC) 1.4 K/uL (0.7-4.9); Basophils % 0.8 % (0-1.3); Hematocrit 41.2 % (36.0-45.0); Lymphocytes % 25.9 % (15.3-44.8); MPV 8.5 fL (7.6-11.3); RBC Red Blood Cell Count 4.95 M/uL (3.86-4.86)
[2021-08-24 12:08] LABS: Protime INR 1.04
[2021-08-24 12:53] LABS: Urine Microscopic Reflex ORDER UMIC
[2021-08-24 13:47] LABS: Urine Bacteria <20 /HPF (<20)
[2021-08-24 13:48] LABS: Urine Amorphous Sediment 2+ /HPF (NONE SEEN); Urine Mucus 2+ /HPF (NONE SEEN)
[2021-08-25] MEDS ORDERED: Ringers Lactate 1,000 ML IV ONE ×2 (07:06→10:01)
[2021-08-25] MEDS ORDERED: CEFAZOLIN 2 GM IN 0.9% NACL 2 GM/100 ML BAG ONE (07:07)
[2021-08-25] MEDS ORDERED: NA CHLORIDE 0.9% 1,000 ML ONE (07:12)
[2021-08-25] MEDS ORDERED: NA CHLORIDE 0.9% 100 ML IV ONE (07:12)
[2021-08-25] MEDS ORDERED: CEFAZOLIN SODIUM 1 GM/VIAL ONE (07:13)
[2021-08-25] MEDS ORDERED: LIDOCAINE 1% W/EPI 1:100,000 MDV 20 ML VIAL ONE (07:14)
[2021-08-25] MEDS ORDERED: FENTANYL CITR 250 MCG/5 ML ONE (07:34)
[2021-08-25] MEDS ORDERED: MIDAZOLAM HCL 2 MG/2 ML INJ ONE (07:34)
[2021-08-25] MEDS ORDERED: dexAMETHasone 10 MG/ML VIAL ONE (07:34)
[2021-08-25] MEDS ORDERED: ROCURONIUM 50 MG/5 ML VIAL IV ONE (07:34)
[2021-08-25] MEDS ORDERED: LIDOCAINE 1% MPF 5 ML VIAL ONE (07:34)
[2021-08-25] MEDS ORDERED: propofoL 200 MG/20 ML VIAL IV ONE (07:34)
[2021-08-25] MEDS ORDERED: ONDANSETRON 4 MG/2 ML VIAL ONE (07:34)
[2021-08-25] MEDS: VASOPRESSIN 20 UNIT/ML VIAL ONE ×2 (08:15→08:20)
[2021-08-25] MEDS ORDERED: GLYCOPYRROLATE 0.2 MG/ML SYR ONE (08:42)
[2021-08-25] MEDS ORDERED: KETOROLAC 30 MG/ML INJ ONE (09:21)
[2021-08-25] MEDS ORDERED: ONDANSETRON 4 MG/2 ML VIAL IV PRN (09:46)
[2021-08-25] MEDS ORDERED: IBUPROFEN 200 MG TAB PO PRN (09:46)
[2021-08-25] MEDS ORDERED: ACETAMINOPHEN 500 MG TAB PO PRN (09:46)
[2021-08-25] MEDS ORDERED: PROMETHAZINE INJ 25 MG/ML AMP IV PRN (09:46)
[2021-08-25] MEDS ORDERED: MORPHINE 2 MG/ML SYR IV PRN (09:46)
--- NOTE | 2021-08-25 09:54 | P.BOP ---
Preoperative diagnosis: SEBASTIEN, stage 2 posterior wall defect(rectocele), perineal body defect Postoperative diagnosis: same Primary procedure: MUS(TVT-O), cystoscopy, POsterior wall and perineal body repairs Repair Clerk: Estelita Paz Estimated blood loss: min Specimen: none Findings: Bp=+1, C=-5 Anesthesia: General Complications: None Drain(s): Urinary catheter Implants: TVT-O Transferred to: Recovery Room Condition: Good
--- NOTE | 2021-08-25 13:44 | OP ---
Date of Procedure: 08/25/2021 Surgeon: Yanira Sawant MD Project Management It Specialist: Estelita Gonzalez. Preoperative Diagnoses: Stress urinary incontinence, stage II posterior wall defect (rectocele and p erineal body defect). Postoperative Diagnoses: Stress urinary incontinence, stage II posterior wall defect (rectocele and perineal body defect). Procedures Performed: Mid urethral sling (TVT-O), cystoscopy, posterior wall repair, and perineal justine dy repair (perineorrhaphy) Anesthesia: General with LMA. Estimated Blood Loss: Minimal. Specimens: No specimens. Complications: No complications. Drains: Urinary catheter. Condition: Stable. Implants: TVT-O. Findings: 1.Significant atrophy of the vaginal epithelium consistent with the patient's use of anastrozole. 2.Stage II posterior wall defect with lowest point of the posterior wall, BP at +1 and point C at -5 . Total vaginal length was also 5 cm. After the defect repair was done, cystoscopy was negative. No e vidence of any abnormalities, foreign body, or tumors in the bladder. Then, vaginal canal slightly n arrowed in the distal half. Rectal exam negative. Indications: The patient is a 70-year-old female, presented with stress urinary incontinence and aft er being examined significant hypermobility with SEBASTIEN, likely also with some component of intrinsic sp hincter defect; however, a transobturator tape was the first option to go with. She was consented fo r this. She had initially been evaluated last year when she was diagnosed with breast cancer, then h er procedure was postponed also due to COVID and finally she was back because this has become very in tolerable. On examination, she also had a posterior wall defect, which was significant and the bulge was notable to the patient as well. She wanted this repaired as well and she was consented for posterior defect repair and perineal body repair. Procedure In Detail: After informed consent was verified in the preoperative area, present o n the bedside. The patient was taken back to the OR. 2 g of Ancef were given. SCDs were started. General anesthesia was given. She was placed in a dorsal lithotomy position in Cristian stirrups. Posi tioning was checked. Lower abdomen, vulva, vagina, and perineum were all prepped and draped in a gisselle rile fashion including the medial thighs. Then, Ventura catheter was placed to drain the bladder and r etracted with a Jeannine clamp superiorly. The mid urethral area was picked up with 2 Allis clamps afte r determining the urethrovesical junction with the help of the Ventura bulb. Then, a 1 cm incision was made after dilute vasopressin 10 mL was injected in this plane. Tunnels were created towards the ip silateral obturator space hugging the inferior pubic ramus at a 45-degree angle to the horizontal and vertical planes. After perforating the obturator membrane, the tips of the scissors were opened up and the track was expanded and pulled back. Similar dissection was performed on the opposite side an d once the track was well created, then went ahead and opened the TVT-O kit. Wing guide was placed. Sebas was passed along the wing guide and after passing through the obturator membrane, the guide wa s removed. The spike was turned plastic dilator and was held with a Jeannine and needle pulled out. Sh eath and mesh were held with a Jeannine and dilator was cut. Similar pass was taken on the opposite macrina e as well without any problems. The exit point was 2 cm superior to the external urethral meatus at a line drawn at the level of the external meatus 2 cm lateral to the groin folds avoiding the adducto r longus tendon. Mesh was tensioned with the help of Metzenbaum scissors in the middle. Sheath was pulled out. The mesh was trimmed, flushed with the skin. Once the scissors was pulled out, the mesh was ensured to be loose enough, irrigated with saline and then incision closed with the help of 3-0 Vicryl in a continuous running fashion. With closure, no perforation at the fornices. Skin incision was closed with Dermabond. Ventura was removed. Cystoscopy was performed with a 30-degree lens, normal saline, a 17-Maldivian sheath . Above this area above the trigone, lateral gregorio and the dome were all well examined. No evidence of any foreign body or tumor. The scope was pulled out after draining the bladder. The internal sp hincter appeared to be slightly loose as there was still leakage and the bladder was really full. After this was completed and Ventura was replaced, this was clamped and retracted superiorly. The area of the hymen was picked up on each side with the help of the Allis clamps, injected the post erior half with dilute vasopressin, 20 mL was injected. A lobo-shaped incision was made in the po sterior lower half of the wall. Epithelium and subepithelium were dissected away from the fascia and fascia was dissected away from the gregorio superiorly all the way up, then laterally all the way to th e level of the levators. There was a lot of scar tissue here. Then similarly, the perineal body was dissected just at the proximal part close to the distal vaginal canal. The fascia was then plicated from side to side as the central defect had to be closed and once this was done in a continuous runn ing fashion attaching it to the perineal body and off the right side. This was tied. Then, vaginal epithelium was trimmed with a Jeannine, maybe half a cm to make the edges even and closed in a vertical fashion with a continuous running 2-[address] to the hymen. Then, a separate triangular i ncision was made at the perineum after injecting the dilute vasopressin. The skin was dissected away from the underlying tissues. The scar was dissected to expose the lateral aspects of the perineal b samuel. These were brought together with 2 interrupted 2-0 Vicryl sutures and 3-0 Vicryl was used to cl ose it in a subcutaneous and subcuticular fashion bringing the perineal body together. There was exc ellent lift and the genital hiatus was down from 5 cm to 3.5. The patient tolerated the procedure we ll. Rectal exam was negative for any sutures or foreign body. Gloves were changed. Vaginal packing was done and the patient was recovered from anesthesia. Instrument, needle, and sponge counts were correct at the end of the case . EBL was minimal. SK/MODL Voice ID: [id number] Report ID: [id number]
[2021-08-25] MEDS: Ringers Lactate 1,000 ML IV SCH ×2 (14:00→18:30)
[2021-08-25] MEDS: HYDROCODONE/APAP 5/325 MG TAB PO PRN (16:04)
[2021-08-26] MEDS: Ringers Lactate 1,000 ML IV SCH ×2 (03:20→10:00)
[2021-08-26] MEDS: HYDROCODONE/APAP 5/325 MG TAB PO PRN (06:20)
[2021-08-26] MEDS ORDERED: CALCIUM CARBONATE 500 MG TAB PO SCH (09:00)
[2021-08-26] MEDS ORDERED: ENALAPRIL 2.5 MG TAB PO SCH (09:00)
[2021-08-26] MEDS ORDERED: VITAMIN D 1000 UNIT TAB PO SCH (09:00)
[2021-08-26 09:23] VITALS: BP 122/70
[2021-08-26 10:35] VITALS: TEMP 97.7
[2021-08-26 10:41] VITALS: O2SAT 95
== END 2021-08-26 11:30 | disposition home or self-care (01) ==
LOC: OR 06:27 → 2ND-WC 09:46 → 2ND 14:45 → OR 08-26 11:30
PROVIDERS: ATTEND Obstetrics & Gynecology
PROC: 0JQC0ZZ Repair Pelvic Region Subcutaneous Tissue and Fascia, Open Approach (ICD-10-PCS; 2021-08-25)
PROC: 0HQ9XZZ Repair Perineum Skin, External Approach (ICD-10-PCS; 2021-08-25)
PROC: 0TSD0ZZ Reposition Urethra, Open Approach (ICD-10-PCS; principal; 2021-08-25 07:30)
DX: N39.3 Stress incontinence (female) (male) (principal); N99.3 Prolapse of vaginal vault after hysterectomy; N32.81 Overactive bladder; N95.2 Postmenopausal atrophic vaginitis; Z85.3 Personal history of malignant neoplasm of breast; Z20.822 Contact with and (suspected) exposure to COVID-19
CPT/HCPCS: 85025; 80048; 36415; 86900; 86850; 85610; 86901; 85730; 94010; 57288; 57250; U0003; J2704; J2250; J3010; J1100; J0690 ×2; J7120 ×4; J7030; J2405; 81003; 81015

== ENCOUNTER 2025-01-01 07:21 | Day surgery (SDC) | payer OTHER ==
[2024-12-31 15:11] LABS: Absolute Eosinophils 0.1 K/uL (0-0.5); Absolute Lymphocytes (CBC) 1.8 K/uL (0.7-4.9); Absolute Monocytes 0.5 K/uL (0.1-1.3); Absolute Neutrophil 3.8 K/uL (1.8-8.0); Basophils % 0.6 % (0-1.3); Eosinophils % 2.3 % (0-4.4); Hematocrit 37.3 % (36.0-45.0); Hemoglobin 12.4 g/dL (12.0-15.0); Lymphocytes % 29.1 % (15.3-44.8); MCH 27.9 pg (27.0-35.0); MCHC 33.1 g/dL (32.0-36.0); MCV 84.3 fL (80-100); MPV 9.2 fL (7.6-11.3); Monocytes % 7.3 % (3.3-12.3); Neutrophils % 60.7 % (41.7-73.7); Nucleated Red Blood Cells % 0.1 % (0-0); Platelets 216 thou/uL (152-406); RBC Red Blood Cell Count 4.43 M/uL (3.86-4.86); Red Cell Distribution Width 15.2 % (12.1-15.2)
[2024-12-31 15:24] LABS: Anion Gap 6.2 mEq/L (5.0-15.0); Potassium 4.2 mEq/L (3.5-5.1)
[2025-01-01] MEDS: NA CHLORIDE 0.9% 100 ML ONE (08:00)
[2025-01-01] MEDS ORDERED: propofoL 200 MG/20 ML VIAL IV ONE (08:07)
[2025-01-01] MEDS ORDERED: ONDANSETRON 4 MG/2 ML VIAL ONE (08:07)
[2025-01-01] MEDS ORDERED: LIDOCAINE 2% MPF 5 ML VIAL ONE (08:07)
[2025-01-01] MEDS ORDERED: FENTANYL CITR 100 MCG/2 ML ONE (08:07)
[2025-01-01] MEDS ORDERED: SUCCINYLCHOLINE 20 MG/ML (10 ML) IV ONE (08:11)
[2025-01-01] MEDS: SCOPOLAMINE HYDROBROMIDE PATCH TD ONE (08:20)
[2025-01-01] MEDS: CEFAZOLIN SODIUM 2 GM/VIAL ONE (08:49)
[2025-01-01] MEDS: LIDOCAINE HCL/EPINEPHRINE 20 ML MDV ONE (09:10)
[2025-01-01] MEDS ORDERED: NA CHLORIDE 0.9% 500 ML ONE (10:12)
--- NOTE | 2025-01-01 10:38 | RAD REPORT ---
EXAM: Fluoroscopy use, Fluoroscopy <1 Hour HISTORY: SACRAL NEURO MOD COMPARISON: None FINDINGS: Multiple images were sent to PACS, during a fluoroscopically guided procedure. No radiologi st was involved in protocoling or performance of the study, and no radiologist was present for the duration of the procedure. No interpretation of the saved images will be provided. Total fluoroscopy time: 1.2 minutes. IMPRESSION: Documentation of fluoroscopy use as above. Transcribed Date/Time: 01/01/2025 10:38 AM
[2025-01-01 10:53] VITALS: O2SAT 99
[2025-01-01 12:28] VITALS: BP 125/64; TEMP 97
--- NOTE | 2025-01-01 23:35 | OP ---
Date of Procedure: 01/01/2025 Surgeon: Yanira Sawant MD Equipment Worker: No account management assistant. Preoperative Diagnoses: Urge urinary incontinence, urgency, and frequency. Postoperative Diagnoses: Urge urinary incontinence, urgency, and frequency. Procedures Performed: Stage I and II InterStim (complete InterStim) system implantation with incisio n and implantation of tined quadripolar lead electrodes into the S3 foramen with fluoroscopic guidanc e of needle placement, subcutaneous implantation of sacral nerve neurostimulator, and electronic anal ysis and programming. Anesthesia: General endotracheal. Specimens: No specimens. Complications: No complications. Drains: No drains. Implants: InterStim System. Findings: Left S3 was used and left buttock, battery was placed. Then leads 2 and 3 had a strong re sponse with plantar flexion of the great toe; and lead 3 had Neal, but there was no other motor re sponse. However, the position was checked and was optimal on fluoroscopy. Then, programming was don e and she was set at program 1 at 1.3 milliamps. Indications: The patient is a 74-year-old lady, known to the practice, had a prolapse repair in the past with significant urgency symptoms and urge urinary incontinence. She was treated with medical t herapy first and second lines, and had no relief, and so we discussed third line options after evalua ting with urodynamics and cystoscopy. She wanted to proceed with the neuromodulation and therefore, an office percutaneous nerve evaluation was performed, where she had a significant improvement in her urgency, frequency, and incontinence. She was then consented for a full system implant and brought to the hospital after medical clearance as well. Her A1c was well controlled and diabetes control op timized. Procedure In Detail: After informed consent was re-obtained in the preoperative area with her family present, she was then taken back to the OR, placed in supine fashion on the bed. General anesthesia was given. Then, she was placed in a prone position according to the OR protocol. Pillows were flora sandhya under the lower abdomen to flatten the sacrum and under the shins to allow the toes dangle freely . The patient was then prepped and draped in the usual sterile fashion using ChloraPrep. The C-arm was draped and moved into AP position to provide fluoroscopic mapping of the sacral region, including the midline of the sacrum, SI joint, sciatic notches, medial foraminal borders, and sacral foramina. Then was moved to lateral position to image the sacrum from the promontory to the coccyx. Surface markings were all made, and lidocaine was injected 1% 10 mL on each side. A foramen needle was then introduced approximately 2 cm above the sciatic notch and 2 cm lateral to t he sacral midline, feeling for the foraminal margins. Then, left side was first attempted and I was able to place it into S3. However, the lower portion of the canal was only accessible from the entry point, so the entry point was dropped down another centimeter and despite this only the lower portio n of the sacral foramen was accessed. There was no response of Neal or toes, so I moved it down f urther 1 cm and able to get it to the optimal depth. On testing, there was a strong response of toe, but no Neal, so attempted to go on the right side and after appropriate positioning using fluoros copy, I still did not get a good motor response. Therefore, the position of the needle on the left w as much better, so after adjusting it towards the medial end of the foramen, left it in place and pro ceeded with the rest of the implant. The foramen needle stylet was then removed. Bidirectional guid e was placed and confirmed fluoroscopically. The foramen needle was removed and the incision was mad e peripherally to the bidirectional guide through the fascial layer. The lead introducer sheath and dilator were placed over the directional guide and directed into the foramen to ensure radiopaque mar ker of the lead introducer did not extend beyond the anterior edge of the sacrum. The dilator was un locked and removed along with the bidirectional guide. The lead was then placed through the introduc er sheath to the first white line, and position was checked fluoroscopically. The lead was then furt her introduced until 3 electrodes were visible below the sacrum. Each electrode was tested and there was visualization of Neal on lead 3 and plantar flexion of the great toe on leads both 2 and 3. After satisfactory positioning was confirmed, both in AP and lateral views fluoroscopically, then the introducer sheath was retracted under continuous fluoro deploying the tined leads into the presacral tissue. Further incision was made in the subcutaneous tissue on the left side significantly below the iliac c rest lateral to the sacrum. 1% lidocaine was injected with epinephrine 10 mL on the skin. A 5 cm in cision was made with the scalpel. After fascia was dissected, Bovie was used to take it down to the level of the gluteal fascia. Here, the pocket was created carefully. Thorough hemostasis was secure d. Then, a tunneling tool with a straw was placed in the lead exit site subcutaneously to the incise d pocket site. The tunneling tool was then removed and the lead was fed through the straw, pulled ou t at the pocket site, and the lead was cleansed off bodily fluids and dried. The lead was inserted i nto the neurostimulator head and the metal bands were aligned with the blue tip clearly visible in th e distal portion of the header. The single set screw was tightened with a hex wrench. The stimulator was then placed into the subcutaneous tissue pocket with the etched identification macrina e placed upwards and the excessive lead wrapped counterclockwise around the neurostimulator. The pro gramming head was placed over the implanted neurostimulator in a sterile cover to ensure adequate shayla d connection that parameters were within normal limits. Impedances were confirmed to be within nuno l limits. The wounds were irrigated with antibiotic solution and sterile water, and closed with 3-0 Vicryl inte rrupted x3 and 4-0 Monocryl subcuticular sutures. Interrupted 4-0 Monocryl was used to close the shayla d site as well. Steri-Strips and 4x4s were placed, and dressing was completed. EBL was less than 10 mL. The patient was transferred to the recovery room in a satisfactory condition. Using the clinic daren server programmer, the generator was programmed to program 1 at 1.3 milliamps with good sensory response , and the patient was more awake. She will be discharged home, and she will follow up in 3 weeks for followup. All instrument, needle, and sponge counts x3 were correct at the end of the case. MAHOGANY/HAWK Voice ID: [id number] Report ID: [id number]
== END 2025-01-01 11:44 | disposition home or self-care (01) ==
LOC: OR 07:21
PROVIDERS: ATTEND Obstetrics & Gynecology
PROC: 0JH73BZ Insertion of Single Array Stimulator Generator into Back Subcutaneous Tissue and Fascia, Percutaneous Approach (ICD-10-PCS; 2025-01-01)
PROC: 01HY3MZ Insertion of Neurostimulator Lead into Peripheral Nerve, Percutaneous Approach (ICD-10-PCS; principal; 2025-01-01 08:30)
DX: N39.41 Urge incontinence (principal); I10 Essential (primary) hypertension
CPT/HCPCS: 93005; 85025; 80048; 36415; 82947 ×2; 64561; 64590; J2704; J2003; J3010; J2405; J7040; C1778; C1767; 76000